=== PATIENT | female | born 1935 ===

== ENCOUNTER 2016-11-13 14:58 | Inpatient (IN) | payer MEDICARE, MEDICAID ==
[2016-11-13] MEDS ORDERED: Sodium Chloride 0.9% 500 ML IV ONE ×2 (15:45→16:02)
[2016-11-13 16:15] LABS: BASO % 0.3 % (0.0-2.0); HEMATOCRIT 34.9 % (34.0-47.0); LYMPH # 0.6 K/uL (1.0-4.3); LYMPH % 5.2 % (20.0-40.0); MEAN CELL VOLUME 73.4 fL (81.0-99.0); MEAN CORPUSCULAR HEMOGLOBIN 22.8 pg (27.0-31.0); MEAN PLATELET VOLUME 8.7 fL (7.2-11.7); MONO # 0.5 K/uL (0.0-0.8); MONO % 4.1 % (0.0-10.0); PLATELET COUNT 348 K/uL (130-400); RED CELL DISTRIBUTION WIDTH 17.7 % (11.5-14.5); WHITE BLOOD COUNT 11.2 K/uL (4.8-10.8)
[2016-11-13 16:19] LABS: CHLORIDE 104 mmol/L (98-107)
[2016-11-13 16:20] LABS: SODIUM 138 mmol/L (132-148)
[2016-11-13 16:22] LABS: AST/SGOT 18 U/L (14-36); BILIRUBIN,TOTAL 0.6 mg/dL (0.2-1.3); CARBON DIOXIDE 21 mmol/L (22-30); GFR AFRICAN-AMERICAN > 60
[2016-11-13 16:23] LABS: ALKALINE PHOSPHATASE 81 U/L (38-126); ALT/SGPT 12 U/L (9-52); BLOOD UREA NITROGEN 17 mg/dL (7-17); CALCIUM 8.7 mg/dl (8.6-10.4); GLUCOSE,RANDOM 145 mg/dL (65-105)
[2016-11-13 17:28] LABS: RBC URINE 5 /hpf (0-3); URINE BACTERIA OCC (<OCC); URINE BILIRUBIN NEGATIVE (NEGATIVE); URINE BLOOD NEGATIVE (NEGATIVE); URINE COLOR Yellow (YELLOW); URINE GLUCOSE (UA) NORMAL (Normal); URINE KETONE TRACE mg/dL (NEGATIVE); URINE LEUKOCYTE ESTERASE NEG Leu/uL (Negative); URINE PROTEIN 1+ mg/dL (NEGATIVE); URINE UROBILINOGEN NORMAL mg/dL (0.2-1.0); WBC URINE 13 /hpf (0-5)
[2016-11-13 19:05] LABS: NEUTROPHIL 84 % (50-75); TOTAL CELLS COUNTED 100
[2016-11-13 19:06] LABS: GIANT PLATELETS PRESENT; LARGE PLATELETS PRESENT; SMUDGE CELLS PRESENT
[2016-11-13] MEDS ORDERED: Iohexol 350mg/ml 100 ML ONE (19:07)
[2016-11-13 20:03] VITALS: RESP 20
--- NOTE | 2016-11-13 20:29 | C.PDOC ---
Time Seen by Provider: 11/13/16 15:10 Chief Complaint (Nursing): Abdominal Pain History Per: Patient, Family (Son) Onset/Duration Of Symptoms: Days (chronic), Worse Since (yesterday) Current Symptoms Are (Timing): Still Present Severity: Moderate Location Of Pain/Discomfort: Other (Lower) Quality Of Discomfort: "Pain" Exacerbating Factors: None Alleviating Factors: None Additional History Per: Prior Records Past Medical History Reviewed: Historical Data, Nursing Documentation, Vital Signs Vital Signs: Last Vital Signs Temp 99 F 11/13/16 20:03 Pulse 66 11/13/16 20:03 Resp 20 11/13/16 20:03 BP 120/80 11/13/16 20:03 Pulse Ox 95 11/13/16 20:03 - Medical History PMH: HTN, Malignancy (Metastatic), Chronic Kidney Disease Surgical History: Appendectomy Family History: States: Unknown Family Hx - Social History Hx Alcohol Use: No Hx Substance Use: No Review Of Systems Except As Marked, All Systems Reviewed And Found Negative. Constitutional: Positive for: Chills, Weakness Cardiovascular: Negative for: Chest Pain Respiratory: Negative for: Hemoptysis Gastrointestinal: Positive for: Abdominal Pain. Negative for: Vomiting, Diarrhea Genitourinary: Negative for: Dysuria Musculoskeletal: Positive for: Shoulder Pain (right). Negative for: Neck Pain Skin: Negative for: Rash Neurological: Negative for: Weakness, Numbness, Seizures, Altered Mental Status Physical Exam - Physical Exam Appears: Chronically Ill Skin: Normal Color, Warm, Dry Head: Atraumatic, Normacephalic Eye(s): bilateral: PERRL, EOMI Neck: Normal ROM, Supple Cardiovascular: Rhythm Regular Respiratory: Normal Breath Sounds, No Accessory Muscle Use Gastrointestinal/Abdominal: Soft, Tenderness (nonspecific), No Guarding, No Rebound Back: No CVA Tenderness Extremity: Normal ROM Neurological/Psych: Oriented x3, Normal Motor, Normal Sensation ED Course And Treatment - Laboratory Results Result Diagrams: 11/13/16 15:58 11/13/16 15:58 Lab Interpretation: Abnormal Interpretation Of Abnormal: Leukocytosis with Left shift. O2 Sat by Pulse Oximetry: 95 Pulse Ox Interpretation: Normal - CT Scan/US CT abdomen/pelv Other Rad Studies (CT/US): Read By Radiologist, Radiology Report Reviewed CT/US Interpretation: Metastatic disease. Small collection of fluid lateral to the proximal ascending colon, seroma vs. abscess. CT chest Other Rad Studies (CT/US): Read By Radiologist, Radiology Report Reviewed CT/US Interpretation: Metastatic disease. Moderate right pleural effusion. Multifocal airspace densities at the right lung, possible pneumonia. Progress - Interventions Interventions:: Observation, Intravenous fluid - Medications Administered Intravenous: Opiate, Other (PPI) - Data Reviewed Data Reviewed: Lab, Diagnostic imaging, Old records - Patient Status Patient status: Partially improved - Continuity of Care Discussed patient case with:: Patient, Family-HIPPA compliant, ED Nurse, On- call PMD-pt unassigned - Patient Plan Patient Plan: Admission Disposition Counseled Patient/Family Regarding: Studies Performed, Diagnosis - Disposition Disposition: HOSPITALIZED Disposition Time: 20:35 Condition: SERIOUS - Clinical Impression Clinical Impression: Fever, Abdominal pain, Pleural effusion, right, Pneumonia, Abdominal fluid collection, Metastatic cancer
[2016-11-13] MEDS ORDERED: Piperacillin/Tazobact 3.375 gm 100 ML IVPB STA (20:38)
[2016-11-13] MEDS ORDERED: Piperacillin/Tazobact 3.375 gm 100 ML IVPB ONE (20:44)
--- NOTE | 2016-11-13 22:53 | CP.PCM.HP ---
History of Present Illness - History of Present Illness History of Present Illness: 81 years old female patient with past medical history of hypertension CKD, malignancy presented to the emergency department with complaint of chronic lower abdominal pain, that worsens since yesterday. No fever nausea vomiting No chest pain, leg swelling, palpitation No diarrhea or black stool Past surgical history of appendectomy Present on Admission - Present on Admission Any Indicators Present on Admission: No Past Patient History - Infectious Disease Hx of Infectious Diseases: None - Past Social History Smoking Status: Never Smoked - CARDIAC Hx Hypertension: Yes - RENAL Hx Chronic Kidney Disease: Yes - ENDOCRINE/METABOLIC Hx Endocrine Disorders: Yes Hx Diabetes Mellitus Type 2: Yes - HEMATOLOGICAL/ONCOLOGICAL Hx Blood Disorders: Yes Hx Cancer: Yes - PSYCHIATRIC Hx Substance Use: No - SURGICAL HISTORY Hx Appendectomy: Yes Meds Home Medications: Home Medication List Medication Instructions Recorded Confirmed Type Amoxicillin/Clavulanate [Augmentin 1 tab PO BID 7 Days 11/16/16 Rx 875 MG-125 MG] Allergies/Adverse Reactions: Allergies Allergy/AdvReac Type Severity Reaction Status Date / Time No Known Allergies Allergy Verified 11/13/16 15:42 Results - Vital Signs Recent Vital Signs: Last Vital Signs Temp 100 F H 11/13/16 22:14 Pulse 79 11/13/16 22:14 Resp 20 11/13/16 22:14 BP 131/69 11/13/16 22:14 Pulse Ox 95 11/13/16 22:14 - Labs Result Diagrams: 11/14/16 16:43 11/14/16 16:43 Assessment & Plan (1) Abdominal fluid collection Status: Acute (2) Abdominal pain Status: Acute (3) Fever Status: Acute (4) Metastatic cancer Status: Acute (5) Pleural effusion, right Status: Acute (6) Pneumonia Status: Acute - Assessment and Plan (Free Text) Plan: Labs reviewed IV antibiotics Lasix Lovenox Aspirin Coreg Protonix Labs next a.m. GI consult
[2016-11-14] MEDS: Piperacill/Tazo 2.25gm in Dex 2.25 GM/50 ML BAG IVPB SCH ×4 (03:10→22:11)
--- NOTE | 2016-11-14 09:01 | RAD ---
PROCEDURE: Radiographs of the Right Shoulder HISTORY: Pain. h/o metastatic CA COMPARISON: CT chest 11/13/2016 FINDINGS: BONES: . No fracture. JOINTS: Glenohumeral and acromioclavicular osteoarthritis. SOFT TISSUES: A 1.2 cm rounded peripheral rimmed calcified focus projects just inferior to coracoid process of the scapula. This appears anterior to the clipper machine it may be exophytic or may relate to dense of atherosclerotic vascular calcification. It is noted on the CT chest exam. Coarse atherosclerotic vascular calcifications versus old trauma possibly bordering the coracoid process are some considerations OTHER FINDINGS: None. IMPRESSION: Osteoarthrosis. Findings as above. No fracture or dislocation.
--- NOTE | 2016-11-14 09:49 | RAD ---
PROCEDURE: Radiographs of the chest and abdomen (obstructive series) HISTORY: abd pain, h/o metastatic CA COMPARISON: CT abdomen and 2016 TECHNIQUE: AP radiograph of the chest, with upright and supine radiographs of the abdomen. FINDINGS: CHEST: Lungs: Bibasilar consolidation - infiltrates and/or atelectasis Cardiovascular: Cardiomegaly. Mild pulmonary vascular congestion suspect Pleura: Small bilateral pleural effusions right slightly greater than left. No pneumothorax Other findings: None. ABDOMEN AND PELVIS: Bowel: Stool retention. No evidence of mechanical obstruction. Free air: None. Bones: Lumbar spondylosis and facet arthrosis Other findings: Surgical guillermina project over the right iliac crest. Atherosclerotic vascular calcification 1.2 peripheral and calcification projecting over the left iliac bone consistent with a calcified lymph node. 1.3 cm left lower renal pole calculus IMPRESSION: 1.3 cm left lower renal pole calculus. No evidence of mechanical bowel obstruction. Stool retention. No free air. Postsurgical changes Cardiomegaly, bibasilar mild consolidation- infiltrates and/or atelectasis with small bilateral pleural effusions.
[2016-11-14] MEDS ORDERED: Pantoprazole 40 mg EC Tab PO SCH (10:00)
[2016-11-14] MEDS: Enoxaparin 40 mg Syringe SC SCH (10:06)
[2016-11-14] MEDS: LINZESS 145 MG PO SCH (12:11)
[2016-11-14] MEDS: Pantoprazole 40 mg EC Tab PO SCH (12:12)
--- NOTE | 2016-11-14 13:51 | CT ---
CT chest, abdomen, and pelvis with IV contrast Indication: Abdominal pain, fever, history of metastatic cancer Technique: Contiguous axial images were obtained through the chest, abdomen, and pelvis with intravenous contrast enhancement. Oral contrast was not administered. Sagittal and coronal reconstructions were generated and reviewed. This CT exam was performed using 1 or more of the falling dose reduction techniques: Automated exposure control, adjustment of the MAA and/or kV according to patient size, and/or use of iterative reconstruction technique. IV Contrast: 100 mL Omnipaque 350 Radiation dose (DLP): 928.18 MGy-cm. Comparison: None available Findings: Heterogeneous enlarged inferior thyroid gland with substernal extension measuring up to 4 cm on the right. The mediastinal and hilar vascular structures appear unremarkable. Cardiomegaly. Atherosclerotic calcifications of the aorta and coronary arteries. Aortic ectasia. No large central pulmonary embolism identified. Moderate right-sided and small left pleural effusion and associated compressive consolidation. Scarring at the left lung apex. No pneumothorax. Multiple nodules are identified at the level of the right hemidiaphragm measuring up to 1.8 cm worrisome for metastases. Multiple heterogeneous hypodense hepatic mass measuring up to 3 cm within the right hepatic lobe; these lesions are worrisome for metastatic disease. Several simple appearing cyst measuring up to 2 cm in the left hepatic lobe. Gallstones versus sludge within the gallbladder. The pancreas and spleen appear unremarkable. 1.7 cm left adrenal gland nodule. 4 mm right adrenal gland nodule. Nonobstructing bilateral renal calculi, largest measuring approximately 15 mm in the left lower pole. The kidneys enhance symmetrically. Too small to small to characterize exophytic 6 mm right upper pole renal hypodensity. Small hiatal hernia with evidence of gastroesophageal reflux. The stomach is nondistended. Lack of oral contrast limits evaluation for bowel pathology. No evidence of bowel obstruction. Diverticulosis without CT evidence of acute diverticulitis. Heterogeneous mass at the level of the terminal ileum measuring approximately 3.8 x 3.6 cm, adjacent the anastomotic suture which suggest tumor recurrence. There is no definite free air. Abdominal aortic ectasia and dense atherosclerotic calcifications. Abnormal mesenteric, portacaval, celiac, and para-aortic adenopathy measuring up to 1.2 cm. Abnormal mesenteric lymph nodes in the right lower quadrant measuring up to 1.4 cm. Mild abdominal ascites. Small pelvic free fluid. Midline laparotomy scar, subcutaneous soft tissues. Small complex fluid collection within the right lateral lower abdominal wall measures approximately 5.9 x 3.0 cm height thin abscess versus seroma (series 6, image 105). Heterogeneous appearance of the uterus. Fluid is noted within the endometrial cavity. Heterogeneous right adnexal mass measuring approximately 7.4 cm worrisome for malignant neoplasm. The urinary bladder appears unremarkable. Multilevel degenerative changes. Osseous demineralization. Question small approximately 3 mm lytic focus involving T4 and approximately 5 mm lytic focus within the T5 vertebral body. Impression: Extensive findings as above. Heterogeneous enlarged inferior thyroid gland with substernal extension measuring up to 4 cm on the right. Moderate right-sided and small left pleural effusion and associated compressive consolidation. Scarring at the left lung apex. Multiple nodules are identified at the level of the right hemidiaphragm measuring up to 1.8 cm worrisome for metastases. Multiple heterogeneous hypodense hepatic masses measuring up to 3 cm within the right hepatic lobe; these lesions are worrisome for metastatic disease. Several simple appearing cyst measuring up to 2 cm in the left hepatic lobe. Gallstones versus sludge within the gallbladder. 1.7 cm left adrenal gland nodule. 4 mm right adrenal gland nodule. Heterogeneous mass at the level of the terminal ileum measuring approximately 3.8 x 3.6 cm, adjacent the anastomotic suture which suggest tumor recurrence. Abnormal mesenteric, portacaval, celiac, and para-aortic adenopathy measuring up to 1.2 cm. Abnormal mesenteric lymph nodes in the right lower quadrant measuring up to 1.4 cm. Mild abdominal ascites. Small pelvic free fluid. Midline laparotomy scar, subcutaneous soft tissues. Small complex fluid collection within the right lateral lower abdominal wall measures approximately 5.9 x 3.0 cm height thin abscess versus seroma. Heterogeneous appearance of the uterus. Fluid is noted within the endometrial cavity. Heterogeneous right adnexal mass measuring approximately 7.4 cm worrisome for malignant neoplasm. Question small approximately 3 mm lytic focus involving T4 and approximately 5 mm lytic focus within the T5 vertebral body. Additional findings as above. Preliminary impression was provided by virtual radiologic.
--- NOTE | 2016-11-14 15:19 | CP.PCM.CON ---
Past Patient History - Infectious Disease Hx of Infectious Diseases: None - Past Medical History & Family History Past Medical History?: Yes - Past Social History Smoking Status: Never Smoked - CARDIAC Hx Cardiac Disorders: Yes Hx Hypertension: Yes - PULMONARY Hx Respiratory Disorders: No - NEUROLOGICAL Hx Neurological Disorder: No - HEENT Hx HEENT Problems: No - RENAL Hx Chronic Kidney Disease: Yes - ENDOCRINE/METABOLIC Hx Endocrine Disorders: Yes Hx Diabetes Mellitus Type 2: Yes - HEMATOLOGICAL/ONCOLOGICAL Hx Blood Disorders: Yes Hx Cancer: Yes - INTEGUMENTARY Hx Dermatological Problems: No - MUSCULOSKELETAL/RHEUMATOLOGICAL Hx Musculoskeletal Disorders: Yes Hx Falls: Yes - GASTROINTESTINAL Hx Gastrointestinal Disorders: No - GENITOURINARY/GYNECOLOGICAL Hx Genitourinary Disorders: No - PSYCHIATRIC Hx Psychophysiologic Disorder: No Hx Substance Use: No - SURGICAL HISTORY Hx Surgeries: Yes Hx Appendectomy: Yes - ANESTHESIA Hx Anesthesia: Yes Hx Anesthesia Reactions: No Meds Allergies/Adverse Reactions: Allergies Allergy/AdvReac Type Severity Reaction Status Date / Time No Known Allergies Allergy Verified 11/13/16 15:42 - Medications Medications: Current Medications Amlodipine Besylate (Norvasc) 5 mg PO DAILY [facility] Last Admin: 11/14/16 10:07 Dose: 5 mg Aspirin (Aspirin Chewable) 81 mg PO DAILY [facility] Last Admin: 11/14/16 10:07 Dose: 81 mg Carvedilol (Coreg) 12.5 mg PO BID [facility] Last Admin: 11/14/16 10:07 Dose: 12.5 mg Enoxaparin Sodium (Lovenox) 40 mg SC DAILY [facility] Last Admin: 11/14/16 10:06 Dose: 40 mg Furosemide (Lasix) 40 mg PO DAILY [facility] Last Admin: 11/14/16 10:07 Dose: 40 mg Glimepiride (Amaryl) 1 mg PO DAILY [facility] Last Admin: 11/14/16 10:09 Dose: 1 mg Home Med (Patient's Own Medication) 1 tab PO DAILY [facility] Last Admin: 11/14/16 12:11 Dose: 1 tab Piperacillin Sod/Tazobactam Sod (Zosyn 2.25 Gm Iv Premix) 2.25 gm in 50 mls @ 100 mls/hr IVPB Q6H [facility] Last Admin: 11/14/16 14:09 Dose: 100 mls/hr Pantoprazole Sodium (Protonix Ec Tab) 40 mg PO DAILY [facility] Last Admin: 11/14/16 12:12 Dose: 40 mg Pneumococcal Polyvalent Vaccine (Pneumovax 23 Vaccine) 0.5 ml IM .ONCE ONE Stop: 11/16/16 10:01 Rosuvastatin Calcium (Crestor) 10 mg PO HS [facility] Results - Vital Signs Recent Vital Signs: Last Vital Signs Temp 98.7 F 11/14/16 07:45 Pulse 67 11/14/16 09:45 Resp 20 11/14/16 07:45 BP 122/75 11/14/16 10:07 Pulse Ox 100 11/14/16 07:45 - Labs Result Diagrams: 11/13/16 15:58 11/13/16 15:58 Labs: Laboratory Results - last 24 hr 11/14/16 11/14/16 07:15 11:25 POC Glucose (mg/dL) 117 H 109
--- NOTE | 2016-11-14 16:39 | CP.PCM.PN ---
Subjective - Date & Time of Evaluation Date of Evaluation: 11/14/16 Time of Evaluation: 09:20 - Subjective Subjective: clinically same Objective - Vital Signs/Intake and Output Vital Signs (last 24 hours): Temp Pulse Resp BP Pulse Ox 98.7 F 67 20 122/75 100 11/14/16 07:45 11/14/16 09:45 11/14/16 07:45 11/14/16 10:07 11/14/16 07:45 Intake and Output: 11/14/16 11/14/16 06:59 18:59 Intake Total 50 300 Balance 50 300 - Medications Medications: Current Medications Amlodipine Besylate (Norvasc) 5 mg PO DAILY [facility] Last Admin: 11/14/16 10:07 Dose: 5 mg Aspirin (Aspirin Chewable) 81 mg PO DAILY [facility] Last Admin: 11/14/16 10:07 Dose: 81 mg Carvedilol (Coreg) 12.5 mg PO BID [facility] Last Admin: 11/14/16 10:07 Dose: 12.5 mg Enoxaparin Sodium (Lovenox) 40 mg SC DAILY [facility] Last Admin: 11/14/16 10:06 Dose: 40 mg Furosemide (Lasix) 40 mg PO DAILY [facility] Last Admin: 11/14/16 10:07 Dose: 40 mg Glimepiride (Amaryl) 1 mg PO DAILY [facility] Last Admin: 11/14/16 10:09 Dose: 1 mg Home Med (Patient's Own Medication) 1 tab PO DAILY [facility] Last Admin: 11/14/16 12:11 Dose: 1 tab Piperacillin Sod/Tazobactam Sod (Zosyn 2.25 Gm Iv Premix) 2.25 gm in 50 mls @ 100 mls/hr IVPB Q6H [facility] Last Admin: 11/14/16 14:09 Dose: 100 mls/hr Pantoprazole Sodium (Protonix Ec Tab) 40 mg PO DAILY [facility] Last Admin: 11/14/16 12:12 Dose: 40 mg Pneumococcal Polyvalent Vaccine (Pneumovax 23 Vaccine) 0.5 ml IM .ONCE ONE Stop: 11/16/16 10:01 Rosuvastatin Calcium (Crestor) 10 mg PO [facility] - Constitutional Appears: Well - Head Exam Head Exam: ATRAUMATIC, NORMAL INSPECTION, NORMOCEPHALIC - Eye Exam Eye Exam: EOMI, Normal appearance, PERRL Pupil Exam: NORMAL ACCOMODATION, PERRL - ENT Exam ENT Exam: Mucous Membranes Moist, Normal Exam - Neck Exam Neck Exam: Full ROM, Normal Inspection. absent: Lymphadenopathy - Respiratory Exam Respiratory Exam: Decreased Breath Sounds - Cardiovascular Exam Cardiovascular Exam: REGULAR RHYTHM, +S1, +S2 - GI/Abdominal Exam GI & Abdominal Exam: Soft, Diminished Bowel Sounds - Rectal Exam Rectal Exam: Deferred Assessment and Plan (1) Abdominal fluid collection Status: Acute (2) Abdominal pain Status: Acute (3) Fever Status: Acute (4) Metastatic cancer Status: Acute (5) Pleural effusion, right Status: Acute (6) Pneumonia Status: Acute - Assessment and Plan (Free Text) Plan: Consulting Dr. Thomas aspirin Carvedilol Lasix Continue antibiotic Protonix f/u labs
[2016-11-14 16:52] LABS: BASO % 0.7 % (0.0-2.0); EOS # 0.1 K/uL (0.0-0.7); EOS % 1.5 % (0.0-4.0); HEMATOCRIT 31.9 % (34.0-47.0); LYMPH # 1.2 K/uL (1.0-4.3); LYMPH % 19.5 % (20.0-40.0); MEAN CELL VOLUME 73.2 fL (81.0-99.0); MEAN CORPUSCULAR HEMOGLOBIN 22.9 pg (27.0-31.0); MEAN CORPUSCULAR HGB CONC 31.3 g/dL (33.0-37.0); MEAN PLATELET VOLUME 8.7 fL (7.2-11.7); MONO # 0.5 K/uL (0.0-0.8); MONO % 9.1 % (0.0-10.0); RED CELL DISTRIBUTION WIDTH 18.1 % (11.5-14.5)
[2016-11-14 17:10] LABS: POTASSIUM 3.4 mmol/L (3.6-5.2)
[2016-11-14 17:12] LABS: BILIRUBIN,TOTAL 0.5 mg/dL (0.2-1.3); CALCIUM 8.2 mg/dl (8.6-10.4); TOTAL PROTEIN 6.4 g/dL (6.3-8.3)
[2016-11-15] MEDS: Piperacill/Tazo 2.25gm in Dex 2.25 GM/50 ML BAG IVPB SCH ×4 (03:13→21:25)
[2016-11-15] MEDS: Pantoprazole 40 mg EC Tab PO SCH (10:34)
[2016-11-15] MEDS: Enoxaparin 40 mg Syringe SC SCH (10:35)
[2016-11-15] MEDS: LINZESS 145 MG PO SCH (10:41)
[2016-11-15] MEDS: Potassium Chloride 20 mEq ER Tab PO SCH (13:40)
--- NOTE | 2016-11-15 18:11 | CP.PCM.PN ---
Subjective - Date & Time of Evaluation Date of Evaluation: 11/15/16 Time of Evaluation: 09:20 - Subjective Subjective: clinically same Objective - Vital Signs/Intake and Output Vital Signs (last 24 hours): Temp Pulse Resp BP Pulse Ox 98.9 F 54 L 20 118/68 99 11/15/16 16:00 11/15/16 16:00 11/15/16 16:00 11/15/16 18:08 11/15/16 16:00 Intake and Output: 11/15/16 11/15/16 06:59 18:59 Intake Total 200 470 Output Total 600 Balance 200 -130 - Medications Medications: Current Medications Amlodipine Besylate (Norvasc) 5 mg PO DAILY [facility] Last Admin: 11/15/16 10:34 Dose: 5 mg Aspirin (Aspirin Chewable) 81 mg PO DAILY [facility] Last Admin: 11/15/16 10:35 Dose: 81 mg Carvedilol (Coreg) 12.5 mg PO BID [facility] Last Admin: 11/15/16 18:08 Dose: 12.5 mg Enoxaparin Sodium (Lovenox) 40 mg SC DAILY [facility] Last Admin: 11/15/16 10:35 Dose: 40 mg Furosemide (Lasix) 40 mg PO DAILY [facility] Last Admin: 11/15/16 10:34 Dose: 40 mg Glimepiride (Amaryl) 1 mg PO DAILY [facility] Last Admin: 11/15/16 10:34 Dose: 1 mg Home Med (Patient's Own Medication) 1 tab PO DAILY [facility] Last Admin: 11/15/16 10:41 Dose: 1 tab Piperacillin Sod/Tazobactam Sod (Zosyn 2.25 Gm Iv Premix) 2.25 gm in 50 mls @ 100 mls/hr IVPB Q6H [facility] Last Admin: 11/15/16 14:35 Dose: 100 mls/hr Pantoprazole Sodium (Protonix Ec Tab) 40 mg PO DAILY [facility] Last Admin: 11/15/16 10:34 Dose: 40 mg Pneumococcal Polyvalent Vaccine (Pneumovax 23 Vaccine) 0.5 ml IM .ONCE ONE Stop: 11/16/16 10:01 Potassium Chloride (K-Dur 20 Meq Er Tab) 20 meq PO DAILY [facility] Last Admin: 11/15/16 13:40 Dose: 20 meq Rosuvastatin Calcium (Crestor) 10 mg PO HS [facility] Last Admin: 11/14/16 22:10 Dose: 10 mg - Labs Labs: 11/14/16 16:43 11/14/16 16:43 - Constitutional Appears: Well - Head Exam Head Exam: ATRAUMATIC, NORMAL INSPECTION, NORMOCEPHALIC - Eye Exam Eye Exam: EOMI, Normal appearance, PERRL Pupil Exam: NORMAL ACCOMODATION, PERRL - ENT Exam ENT Exam: Mucous Membranes Moist, Normal Exam - Neck Exam Neck Exam: Full ROM, Normal Inspection. absent: Lymphadenopathy - Respiratory Exam Respiratory Exam: Decreased Breath Sounds - Cardiovascular Exam Cardiovascular Exam: REGULAR RHYTHM, +S1, +S2 - GI/Abdominal Exam GI & Abdominal Exam: Soft, Diminished Bowel Sounds - Rectal Exam Rectal Exam: Deferred Assessment and Plan (1) Abdominal fluid collection Status: Acute (2) Abdominal pain Status: Acute (3) Fever Status: Acute (4) Metastatic cancer Status: Acute (5) Pleural effusion, right Status: Acute (6) Pneumonia Status: Acute - Assessment and Plan (Free Text) Plan: spoke to Family as pt has seroma vs abscess but daughter said on no work up for colon ca also donto call onco pt adv to come to office may discharge pt home tomorrow as faily doesnot wokr up
--- NOTE | 2016-11-15 20:11 | CP.PCM.PN ---
<Ruben Thomas - Last Filed: 11/15/16 20:10> Objective - Vital Signs/Intake and Output Vital Signs (last 24 hours): Temp Pulse Resp BP Pulse Ox 98.9 F 54 L 20 118/68 99 11/15/16 16:00 11/15/16 16:00 11/15/16 16:00 11/15/16 18:08 11/15/16 16:00 Intake and Output: 11/15/16 11/16/16 18:59 06:59 Intake Total 470 Output Total 600 Balance -130 - Medications Medications: Current Medications Amlodipine Besylate (Norvasc) 5 mg PO DAILY [facility] Last Admin: 11/15/16 10:34 Dose: 5 mg Aspirin (Aspirin Chewable) 81 mg PO DAILY [facility] Last Admin: 11/15/16 10:35 Dose: 81 mg Carvedilol (Coreg) 12.5 mg PO BID [facility] Last Admin: 11/15/16 18:08 Dose: 12.5 mg Enoxaparin Sodium (Lovenox) 40 mg SC DAILY [facility] Last Admin: 11/15/16 10:35 Dose: 40 mg Furosemide (Lasix) 40 mg PO DAILY [facility] Last Admin: 11/15/16 10:34 Dose: 40 mg Glimepiride (Amaryl) 1 mg PO DAILY [facility] Last Admin: 11/15/16 10:34 Dose: 1 mg Home Med (Patient's Own Medication) 1 tab PO DAILY [facility] Last Admin: 11/15/16 10:41 Dose: 1 tab Piperacillin Sod/Tazobactam Sod (Zosyn 2.25 Gm Iv Premix) 2.25 gm in 50 mls @ 100 mls/hr IVPB Q6H [facility] Last Admin: 11/15/16 14:35 Dose: 100 mls/hr Pantoprazole Sodium (Protonix Ec Tab) 40 mg PO DAILY [facility] Last Admin: 11/15/16 10:34 Dose: 40 mg Pneumococcal Polyvalent Vaccine (Pneumovax 23 Vaccine) 0.5 ml IM .ONCE ONE Stop: 11/16/16 10:01 Potassium Chloride (K-Dur 20 Meq Er Tab) 20 meq PO DAILY [facility] Last Admin: 11/15/16 13:40 Dose: 20 meq Rosuvastatin Calcium (Crestor) 10 mg PO HS [facility] Last Admin: 11/14/16 22:10 Dose: 10 mg - Labs Labs: 11/14/16 16:43 11/14/16 16:43 <Jasmin Villalta S - Last Filed: 02/15/17 17:41> Subjective - Date & Time of Evaluation Date of Evaluation: 11/16/16 Time of Evaluation: 09:00 - Subjective Subjective: clinically same Objective - Vital Signs/Intake and Output Vital Signs (last 24 hours): Temp Pulse Resp BP Pulse Ox 98.7 F 58 L 20 124/78 96 11/16/16 07:45 11/16/16 07:45 11/16/16 07:45 11/16/16 09:48 11/16/16 07:45 Intake and Output: 11/16/16 11/16/16 06:59 18:59 Intake Total 200 170 Balance 200 170 - Medications Medications: Current Medications Amlodipine Besylate (Norvasc) 5 mg PO DAILY [facility] Last Admin: 11/16/16 09:48 Dose: 5 mg Aspirin (Aspirin Chewable) 81 mg PO DAILY [facility] Last Admin: 11/16/16 09:47 Dose: 81 mg Carvedilol (Coreg) 12.5 mg PO BID [facility] Last Admin: 11/16/16 09:48 Dose: 12.5 mg Enoxaparin Sodium (Lovenox) 40 mg SC DAILY [facility] Last Admin: 11/16/16 09:47 Dose: 40 mg Furosemide (Lasix) 40 mg PO DAILY [facility] Last Admin: 11/16/16 09:47 Dose: 40 mg Glimepiride (Amaryl) 1 mg PO DAILY [facility] Last Admin: 11/16/16 09:48 Dose: 1 mg Home Med (Patient's Own Medication) 1 tab PO DAILY [facility] Last Admin: 11/16/16 09:49 Dose: 1 tab Piperacillin Sod/Tazobactam Sod (Zosyn 2.25 Gm Iv Premix) 2.25 gm in 50 mls @ 100 mls/hr IVPB Q6H [facility] Last Admin: 11/16/16 14:03 Dose: 100 mls/hr Pantoprazole Sodium (Protonix Ec Tab) 40 mg PO DAILY [facility] Last Admin: 11/16/16 09:47 Dose: 40 mg Potassium Chloride (K-Dur 20 Meq Er Tab) 20 meq PO DAILY [facility] Last Admin: 05/04/17 09:48 Dose: 20 meq Rosuvastatin Calcium (Crestor) 10 mg PO HS [facility] Last Admin: 11/15/16 21:25 Dose: 10 mg - Labs Labs: 11/14/16 16:43 11/14/16 16:43 Assessment and Plan - Assessment and Plan (Free Text) Plan: dischrag ept home today no wokr up already metestasis augmentin 875mg po bbid
[2016-11-15 23:20] VITALS: TEMP 98.7
[2016-11-16] MEDS: Piperacill/Tazo 2.25gm in Dex 2.25 GM/50 ML BAG IVPB SCH ×3 (03:06→14:03)
[2016-11-16 07:48] VITALS: BP 124/78; PULSE 58; O2SAT 96
[2016-11-16] MEDS: Enoxaparin 40 mg Syringe SC SCH (09:47)
[2016-11-16] MEDS: Pantoprazole 40 mg EC Tab PO SCH (09:47)
[2016-11-16] MEDS: Potassium Chloride 20 mEq ER Tab PO SCH (09:48)
[2016-11-16] MEDS: LINZESS 145 MG PO SCH (09:49)
[2016-11-16] MEDS ORDERED: Pneumococcal 23-Valent Vaccine IM ONE (10:00)
--- NOTE | 2016-11-16 17:37 | CP.PCM.PN ---
Subjective - Date & Time of Evaluation Date of Evaluation: 11/16/16 Time of Evaluation: 17:37 Objective - Vital Signs/Intake and Output Vital Signs (last 24 hours): Temp Pulse Resp BP Pulse Ox 98.7 F 58 L 20 124/78 96 11/16/16 07:45 11/16/16 07:45 11/16/16 07:45 11/16/16 09:48 11/16/16 07:45 Intake and Output: 11/16/16 11/16/16 06:59 18:59 Intake Total 200 470 Balance 200 470 - Medications Medications: Current Medications Amlodipine Besylate (Norvasc) 5 mg PO DAILY [facility] Last Admin: 11/16/16 09:48 Dose: 5 mg Aspirin (Aspirin Chewable) 81 mg PO DAILY [facility] Last Admin: 11/16/16 09:47 Dose: 81 mg Carvedilol (Coreg) 12.5 mg PO BID [facility] Last Admin: 11/16/16 09:48 Dose: 12.5 mg Enoxaparin Sodium (Lovenox) 40 mg SC DAILY [facility] Last Admin: 11/16/16 09:47 Dose: 40 mg Furosemide (Lasix) 40 mg PO DAILY [facility] Last Admin: 11/16/16 09:47 Dose: 40 mg Glimepiride (Amaryl) 1 mg PO DAILY [facility] Last Admin: 11/16/16 09:48 Dose: 1 mg Home Med (Patient's Own Medication) 1 tab PO DAILY [facility] Last Admin: 11/16/16 09:49 Dose: 1 tab Piperacillin Sod/Tazobactam Sod (Zosyn 2.25 Gm Iv Premix) 2.25 gm in 50 mls @ 100 mls/hr IVPB Q6H [facility] Last Admin: 11/16/16 14:03 Dose: 100 mls/hr Pantoprazole Sodium (Protonix Ec Tab) 40 mg PO DAILY [facility] Last Admin: 11/16/16 09:47 Dose: 40 mg Potassium Chloride (K-Dur 20 Meq Er Tab) 20 meq PO DAILY [facility] Last Admin: 11/16/16 09:48 Dose: 20 meq Rosuvastatin Calcium (Crestor) 10 mg PO HS [facility] Last Admin: 11/15/16 21:25 Dose: 10 mg - Labs Labs: 11/14/16 16:43 11/14/16 16:43
== END 2016-11-16 17:46 | disposition home or self-care (01) | DRG 864 ==
LOC: C.ER 14:58 → C.9E 20:56 → C.3T 22:08
PROVIDERS: ADMIT Internal Medicine Nephrology; ATTEND Internal Medicine Nephrology
DX: R50.9 Fever, unspecified (principal); J18.9 Pneumonia, unspecified organism; J90 Pleural effusion, not elsewhere classified; C78.01 Secondary malignant neoplasm of right lung; C78.7 Secondary malignant neoplasm of liver and intrahepatic bile duct; C56.1 Malignant neoplasm of right ovary; E11.22 Type 2 diabetes mellitus with diabetic chronic kidney disease; I12.9 Hypertensive chronic kidney disease with stage 1 through stage 4 chronic kidney disease, or unspecified chronic kidney disease; N18.9 Chronic kidney disease, unspecified; K80.80 Other cholelithiasis without obstruction; K57.30 Diverticulosis of large intestine without perforation or abscess without bleeding